=== PATIENT | female | born 1935 | race African-American/Black ===

== ENCOUNTER → 2016-12-22 | Outpatient (CLI) | payer OTHER ==
[~2016-12-22] MED LIST: ASPIRIN81 M2 PO; CELEBREX PO; COUMADIN5 MG PO; DYAZIDE 37.5/251 CAP PO; ENOXAPARIN60 MG/0.1 SQ; FLEXERIL10 MG PO; KCL PO; KOMBIGLYZE XR1 EAC1 PO; LOVENOX80 MG/0.8 INJ; MEDROL4 MG/DOSE- PO; METFORMIN HCL500 M1 PO; NITRODISC0.4 MG SL; PAROXETINE HCL20 M1 PO; PAXIL40 MG PO; PLAVIX PO; PRILOSEC PO; PRILOSEC20 MG PO; SIMVASTATIN20 MG PO; TRIAMTERENE-HC1 EAC1 PO; ZOCOR20 MG PO
--- NOTE | ~2016-12-22 | US24 ---
[facility] A Service [facility] RADIOLOGY TEXT RESULTS PATIENT: MANDEEP MANN LOCATION: [facility] #: [id number] : 37 UNIT #: [id number] AGE: [address]: VARGHESE ARTHUR MD SEX: F ORDER DR: [id number] [facility]. [place], [place] [address] [id number] O MR#: [id number] Acc #: [id number] NAME: MANDEEP MANN : 1935 SEX: F STUDY DATE/TIME: 12/22/2016 13:19 UNIT: [facility] ROOM: STUDY DESCRIPTION: US Breast Unilateral Attending Physician: Varghese Arthur M.D. Referring Physician: Varghese Arthur M.D. Ordering Physician: Varghese Arthur M.D. Primary Care Physician: Varghese Arthur M.D. MEDICAL IMAGING REPORT This report is preliminary unless electronic signature is present EXAM Left breast ultrasound COMPARISON Breast ultrasound dated May 11, 2014 and bilateral diagnostic mammogram dated December 22, 2016. INDICATION 81-year-old female with 3-week history of pain in the lower inner quadrant of the left breast zone 3. She denies personal or family history of breast cancer, reports prior benign left breast biopsy. FINDINGS/IMPRESSION Please see separately dictated report bilateral diagnostic mammography on the same date for full sonographic findings in the left breast as well as final impression and recommendations. Patients over the age of 40 are entered into a reminder system with target due date for the next mammogram. A result letter will also be sent to the patient. BIRADS: 2 Benign Finding Dictated by... Khris Singletary M.D. THIS IS AN ELECTRONICALLY VERIFIED REPORT Khris Singletary M.D. at 12/22/2016 5:36 PM Vandana TD: 12/22/2016 15:52 JOB #: [id number] [facility] A Service [facility] RADIOLOGY TEXT RESULTS PATIENT: MANDEEP MANN LOCATION: [facility] #: [id number] : 37 UNIT #: [id number] AGE: [address]: VARGHESE ARTHUR MD SEX: F ORDER DR: MEDICAL IMAGING REPORT Page 1 of 1 COPY
--- NOTE | ~2016-12-22 | MY6 ---
[facility] A Service of [facility] RADIOLOGY TEXT RESULTS PATIENT: MANDEEP MANN LOCATION: [facility] : 37 UNIT #: [id number] AGE: [address]: VARGHESE ARTHUR MD SEX: F ORDER DR: [id number] [facility]. [place], [place] [address] [id number] O MR#: [id number] Acc #: [id number] NAME: MANDEEP MANN : 1935 SEX: F STUDY DATE/TIME: 12/22/2016 12:53 UNIT: [facility] ROOM: STUDY DESCRIPTION: MY Mammogram Dx Dig Raghu Attending Physician: Varghese Arthur M.D. Referring Physician: Varghese Arthur M.D. Ordering Physician: Varghese Arthur M.D. Primary Care Physician: Varghese Arthur M.D. MEDICAL IMAGING REPORT This report is preliminary unless electronic signature is present EXAM Bilateral digital diagnostic mammogram with CAD COMPARISON June 06, 2016, May 21, 2015, May 19, 2014, May 11, 2014, April 18, 2014, January 09, 2012, January 06, 2011, January 03, 2010, January 01, 2009, and December 14, 2007 INDICATIONS 81-year-old female with a 3-week history of lower inner quadrant left breast pain localizing to zone 3 of the junction with her sternum and chest wall. She has no personal or family history of breast cancer, and has prior history of benign left breast biopsy. FINDINGS Breasts are almost entirely fatty. MLO view is mildly limited by indwelling pacemaker device obscuring the upper posterior third. No suspicious findings are seen in either breast. Sonographic evaluation was performed in the area of patient complaint which she identified to span from approximately the 6 o'clock position to the 9 o'clock position of zone 3 of the left breast along the inframammary fold and extending to the junction with the sternum. In this location, approximately the 7 o'clock position there is an approximately 3 cm linear area of erythema along the inframammary fold suggestive of a mild yeast infection. The patient does have pain in this location, but the pain has also more diffuse characteristic extending superiorly and medially into the 8 and 9 o'clock position of the left breast. Sonographic evaluation throughout the area of concern was negative. IMPRESSION 1. No mammographic evidence of malignancy in the right breast. 2. No mammographic or sonographic evidence of malignancy in the left breast. The patient has findings suggestive of a very mild yeast STS. [facility] A Service of [facility] RADIOLOGY TEXT RESULTS PATIENT: MANDEEP MANN LOCATION: [facility] : 37 UNIT #: [id number] AGE: [address]: VARGHESE ARTHUR MD SEX: F ORDER DR: infection along the inframammary fold at approximately the 7-8 o'clock position. The patient states that she has had yeast infections in this location in the past and is currently self-treating for yeast infection. The patient reports that the pain is out of proportion to prior yeast infections and is more extensive than the region of the yeast infection. Patient was counseled on treatments of breast pain including vitamin E therapy. She was instructed to notify her primary care physician if her symptoms do not improve, at which time additional imaging with two-view chest or possibly a CT may be indicated. Otherwise, in the absence of new or worsening complaints continued annual screen mammography is recommended. Findings were discussed with the patient upon termination of today's exam. Patient's over the age of 40 are entered into a reminder system with target due date for the next mammogram. A result letter will be sent to the patient. BIRADS: 2 Benign findings. Dictated by... Khris Singletary M.D. THIS IS AN ELECTRONICALLY VERIFIED REPORT Khris Singletary M.D. at 12/22/2016 5:36 PM BLM/to TD: 12/22/2016 15:49 JOB #: [id number] MEDICAL IMAGING REPORT Page 1 of 1 COPY
== END | disposition home or self-care (01) ==
LOC: CMAM 11:58
DX: N64.4 Mastodynia (principal)
CPT/HCPCS: 76641; G0204

== ENCOUNTER 2017-03-01 20:59 | Emergency (ER) | payer OTHER ==
--- NOTE | ~2017-03-01 | CR127 ---
[facility] A Service of [facility] RADIOLOGY TEXT RESULTS PATIENT: MANDEEP MANN LOCATION: [facility] : 37 UNIT #: [id number] AGE: [address]: Octavio Rollins MD SEX: F ORDER DR: [id number] [facility] [address] [place], [place] [address] [id number] E MR#: [id number] Acc #: [id number] NAME: MANDEEP MANN : 1935 SEX: F STUDY DATE/TIME: 03/01/2017 21:57 UNIT: [facility] ROOM: STUDY DESCRIPTION: CR Foot Complete Min 3 View Rt Attending Physician: Octavio Rollins M.D. Ordering Physician: Octavio Rollins M.D. Primary Care Physician: Antonio Jauregui M.D. MEDICAL IMAGING REPORT This report is preliminary unless electronic signature is present EXAM Right foot 3 views 03/01/2017. HISTORY Right foot pain and swelling medially and dorsally for 5 days. No known injury. FINDINGS Three views of the right foot demonstrate no fracture. There is hallux valgus and metatarsus varus. There is degenerative narrowing of the first metatarsophalangeal joint with marginal osteophyte formation. The bones are osteopenic. There is no soft tissue abnormality. IMPRESSION Degenerative change and osteopenia. Hallux valgus and metatarsus varus. No acute abnormality. Dictated by... Taj Louis M.D. THIS IS AN ELECTRONICALLY VERIFIED REPORT Taj Louis M.D. at 03/02/2017 2:12 PM KRT/ruben TD: 03/02/2017 10:07 JOB #: [id number] MEDICAL IMAGING REPORT Page 1 of 1 COPY
== END 2017-03-01 22:35 | disposition home or self-care (01) ==
LOC: CED 20:59
DX: M10.9 Gout, unspecified (principal); I11.9 Hypertensive heart disease without heart failure; E11.9 Type 2 diabetes mellitus without complications; Z90.710 Acquired absence of both cervix and uterus; Z79.82 Long term (current) use of aspirin; Z79.899 Other long term (current) drug therapy
CPT/HCPCS: 73630; 99283